=== PATIENT | female | born 1950 ===

== ENCOUNTER 2017-10-28 06:46 | Day surgery (SDC) | payer OTHER ==
[~2017-10-28 06:46] MED LIST: GLUCOPHAGE XR500 MG PO; GLUCOTROL XL5 MG PO; VASOTEC5 MG PO
[2017-10-28] MEDS ORDERED: PERCOCET 5-3251 EACH PO (15:55)
[2017-10-28] MEDS ORDERED: MACROBID 100 M100 MG PO ×2 (15:59→16:05)
== END 2017-10-28 19:25 | disposition home or self-care (01) ==
LOC: CIR.AMB 06:46 → EDBD 10:30 → CIR.AMB 10:30
DX: N81.11 Cystocele, midline (principal)

== ENCOUNTER 2022-10-09 11:50 | Inpatient (IN) | payer OTHER ==
[~2022-10-09] VITALS: Ht 152.4 cm; Wt 56.7 kg
[~2022-10-09 11:50] MED LIST changes: +MACROBID 100 M100 MG PO; +PERCOCET 5-3251 EACH PO
[2022-10-10] MEDS ORDERED: GLUCOT PO (10:57)
[2022-10-10] MEDS ORDERED: COZAAR25 MG PO (10:57)
[2022-10-10] MEDS ORDERED: HORIZANT300 MG PO (10:58)
[2022-10-10] MEDS ORDERED: ZOCOR40 MG PO (10:58)
[2022-10-16] MEDS ORDERED: ALENDRONATE SOD70 MG (10:32)
[2022-10-16] MEDS ORDERED: GLIPIZIDE10 MG (10:32)
[2022-10-16] MEDS ORDERED: GABAPENTIN300 M2 (10:33)
[2022-10-16] MEDS ORDERED: METFORMIN HCL500 M4 PO (10:36)
[2022-10-17] MEDS ORDERED: BACTRIM 400-801 EACH PO (07:18)
[2022-10-17] MEDS ORDERED: NEURONTIN300 MG PO (07:18)
[2022-10-17] MEDS ORDERED: IBU600 MG PO (07:18)
== END 2022-10-17 10:20 | disposition home or self-care (01) | DRG 743 ==
LOC: ADM 10-10 09:15 → OB/GYN 10-15 07:51 → O/R 10-15 07:51 → OB/GYN 10-15 09:15 → CIR.AMB 10-15 09:15 → EDSTATUS 10-15 09:15 → OB/GYN 10-15 15:46
PROVIDERS: ADMIT Obstetrics & Gynecology Gynecology; ATTEND Obstetrics & Gynecology Gynecology
PROC: 0JQC0ZZ Repair Pelvic Region Subcutaneous Tissue and Fascia, Open Approach (ICD-10-PCS; 2022-10-15)
PROC: 0USG0ZZ Reposition Vagina, Open Approach (ICD-10-PCS; 2022-10-15)
PROC: 0UT97ZZ Resection of Uterus, Via Natural or Artificial Opening (ICD-10-PCS; principal; 2022-10-15 16:00)
DX: D25.1 Intramural leiomyoma of uterus (principal); N84.0 Polyp of corpus uteri; Z20.822 Contact with and (suspected) exposure to COVID-19; N81.11 Cystocele, midline